=== PATIENT | male | born 1950 | race Caucasian/White ===

== ENCOUNTER 2017-06-03 12:57 | Outpatient (CLI) | payer OTHER ==
[~2017-06-03 12:57] MED LIST: NEURONTIN600 MG PO; TRAMADOL HCL50 MG PO
== END 2017-06-03 13:07 | disposition home or self-care (01) ==
LOC: MRI 12:57
DX: M50.10 Cervical disc disorder with radiculopathy, unspecified cervical region (principal); M51.17 Intervertebral disc disorders with radiculopathy, lumbosacral region
CPT/HCPCS: 72141; 72148

== ENCOUNTER 2017-06-21 14:09 | Outpatient (CLI) | payer OTHER | END 2017-06-21 14:21 | disposition home or self-care (01) | LOC: MRI 14:09 | DX: M51.14 Intervertebral disc disorders with radiculopathy, thoracic region (principal) | CPT/HCPCS: 72146 ==

== ENCOUNTER 2017-10-31 13:45 | Inpatient (IN) | payer OTHER ==
[~2017-10-31] VITALS: Ht 172.7 cm; Wt 81.6 kg
[2017-10-31] MEDS ORDERED: ANTI-DIARRHEA2 MG PO (17:25)
[2017-10-31] MEDS ORDERED: CLONAZEPAM1 MG PO (17:25)
[2017-11-07] MEDS ORDERED: GABAPENTIN800 MG PO (09:31)
[2017-11-07] MEDS ORDERED: DOCUSATE SODIU100 MG PO (09:31)
[2017-11-07] MEDS ORDERED: CLONAZEPAM1 MG PO (09:32)
[2017-11-07] MEDS ORDERED: PERCOCET 5-3251 EACH PO (09:32)
[2017-11-07] MEDS ORDERED: AMOX-CLAV 875-1 EACH PO (09:32)
== END 2017-11-07 17:43 | disposition home or self-care (01) | DRG 460 ==
LOC: SURG 11-05 13:45 → SURH 11-06 06:00 → O/R 11-06 06:00 → SURH 11-06 13:44
PROVIDERS: Orthopaedic Surgery Orthopaedic Surgery of the Spine
PROC: 0SG10AJ Fusion of 2 or more Lumbar Vertebral Joints with Interbody Fusion Device, Posterior Approach, Anterior Column, Open Approach (ICD-10-PCS; 2017-11-06)
PROC: 0ST20ZZ Resection of Lumbar Vertebral Disc, Open Approach (ICD-10-PCS; 2017-11-06)
PROC: 07DS3ZZ Extraction of Vertebral Bone Marrow, Percutaneous Approach (ICD-10-PCS; 2017-11-06)
PROC: 0SG10A0 Fusion of 2 or more Lumbar Vertebral Joints with Interbody Fusion Device, Anterior Approach, Anterior Column, Open Approach (ICD-10-PCS; principal; 2017-11-06 03:45)
DX: M47.26 Other spondylosis with radiculopathy, lumbar region (principal); M51.16 Intervertebral disc disorders with radiculopathy, lumbar region; M48.061 Spinal stenosis, lumbar region without neurogenic claudication; R73.01 Impaired fasting glucose; G89.11 Acute pain due to trauma; M54.5 Low back pain

== ENCOUNTER 2017-11-01 12:02 | Outpatient (CLI) | payer OTHER ==
[~2017-11-01 12:02] MED LIST changes: +ANTI-DIARRHEA2 MG PO; +CLONAZEPAM1 MG PO
== END 2017-11-01 14:13 | disposition home or self-care (01) ==
LOC: NUCLEAR 12:02
DX: Z86.718 Personal history of other venous thrombosis and embolism (principal); I87.2 Venous insufficiency (chronic) (peripheral)

== ENCOUNTER 2021-02-17 15:10 | Emergency (ER) | payer OTHER ==
[~2021-02-17] VITALS: Ht 182.9 cm; Wt 79.4 kg
[~2021-02-17 15:10] MED LIST changes: +AMOX-CLAV 875-1 EACH PO; +DOCUSATE SODIU100 MG PO; +GABAPENTIN800 MG PO; +PERCOCET 5-3251 EACH PO
== END 2021-02-17 16:37 | disposition home or self-care (01) ==
LOC: ER 15:10
DX: M51.86 Other intervertebral disc disorders, lumbar region (principal); M54.59 Other low back pain